=== PATIENT | female | born 1980 | race Caucasian/White ===

== ENCOUNTER 2017-02-23 13:11 | Day surgery (SDC) | payer OTHER ==
[2017-02-23] VITALS (11 sets, daily range): BP systolic 104–121; BP diastolic 60–76; PULSE 56–78; RESP 13–32; Ht 175.3 cm; Wt 62.1 kg
[~2017-02-23] VITALS: Ht 175.3 cm; Wt 62.1 kg
[2017-02-23] MEDS ORDERED: BUPIVACAINE 0.25% (MPF) 30 ML INJ ONE ×2 (13:57→15:30)
[2017-02-23] MEDS ORDERED: MIDAZOLAM 1 MG/ML 2 ML INJ ONE (14:19)
[2017-02-23] MEDS ORDERED: PROPOFOL 20 ML ONE (14:19)
[2017-02-23] MEDS ORDERED: FENTAnyl 50 MCG/ML VIAL ONE ×2 (14:19→16:16)
[2017-02-23] MEDS ORDERED: MEPERIDINE 25 MG INJ IV PRN (14:30)
[2017-02-23] MEDS ORDERED: ONDANSETRON 4 MG INJ IV PRN (14:30)
[2017-02-23] MEDS ORDERED: DIPHENHYDRAMINE 50 MG INJ IV PRN (14:30)
[2017-02-23] MEDS ORDERED: FENTAnyl 50 MCG/ML VIAL IV PRN ×3 (14:30)
[2017-02-23] MEDS ORDERED: morphine (1 MG/ML) 10ML SYRINGE IV PRN ×3 (14:30)
[2017-02-23] MEDS ORDERED: METOCLOPRAMIDE 10 MG INJ IV PRN (14:30)
[2017-02-23] MEDS ORDERED: EPHEDrine SULFATE 50 MG/5 ML SYG IV PRN (14:30)
[2017-02-23] MEDS ORDERED: POLYMYXIN/BACITRACIN 1L IRRIG ONE (15:31)
--- NOTE | 2017-02-23 15:58 | HPN ---
Date/Time of Note Date/Time of Note DATE: 02/23/17 TIME: 15:57 Interval H&P Admission Note Pt. seen H&P reviewed: No system changes PENNIE MURRAY Feb 23, 2017 15:58
[2017-02-23] MEDS ORDERED: KETOROLAC 30 MG INJ ONE (16:07)
[2017-02-23] MEDS ORDERED: DEXAMETHASONE 4 MG/ML 1 ML INJ ONE (16:07)
[2017-02-23] MEDS ORDERED: ONDANSETRON 4 MG INJ ONE (16:07)
[2017-02-23] MEDS ORDERED: METOCLOPRAMIDE 10 MG INJ ONE (16:07)
[2017-02-23] MEDS ORDERED: BUPIVACAINE 0.5% (SDV) 30 ML INJ ONE (16:29)
--- NOTE | 2017-02-23 16:48 | OPPN ---
Date/Time of Note Date/Time of Note DATE: 02/23/17 TIME: 16:47 Operative Report Preoperative Diagnosis right small finger metacarpal shaft fracture Postoperative Diagnosis right small finger metacarpal shaft fracture Operation/Procedure Performed closed reduction percutaneous pinning right small finger metacarpal shaft fracture Surgeon see signature line employee relations assistant none Anesthesia: general Estimated blood loss: 0 - 10 ml's Transfusion Required none Specimen none Grafts/Implants none Complications none PENNIE MURRAY Feb 23, 2017 16:48
--- NOTE | 2017-02-23 19:10 | OPR ---
DATE OF OPERATION: 02/23/2017 SURGEON: Jarrett Covarrubias MD ANESTHESIA: General. PREOPERATIVE DIAGNOSIS: Right small finger metacarpal shaft fracture. POSTOPERATIVE DIAGNOSIS: Right small finger metacarpal shaft fracture. OPERATION PERFORMED: Closed reduction, percutaneous pinning, right small finger metacarpal shaft fracture. OPERATIVE FINDINGS: Right small finger metacarpal shaft fracture with ability to reduce in a closed manner. INDICATION FOR PROCEDURE: A 37-year-old female with injury to the right hand. She was seen in clinic and diagnosed with a displaced right small finger metacarpal shaft fracture. Options were discussed and she elected to proceed with surgical intervention understanding the risks and benefits. OPERATIVE PROCEDURE: The patient was seen in the preoperative area and all further questions were answered. Again, she gave informed consent understanding the risks and benefits. She was taken to the operative suite and placed in the supine position. She was placed under general anesthesia and 2 g Ancef IV given. Right upper extremity was prepped with ChloraPrep stick and draped in the usual sterile fashion. The C-arm was brought in and fluoroscopic images showed ability to reduce the fracture in a closed manner. A 0.045 K-wire was driven retrograde from the collateral recess distally across the fracture site into the metacarpal base. An additional 0.045 K-wire was driven across the contralateral side of the metacarpal and into the base. X- ray imaging showed appropriate hardware placement and near anatomic bony alignment. I was pleased with the appearance of the digits and pins were cut short. Pin caps placed followed by Xeroform, sterile gauze, Webril, and a short arm ulnar gutter splint. The patient was awakened from anesthesia and taken to the postoperative suite in stable condition. Tolerated the procedure well without complications. SPECIMENS: None. ESTIMATED BLOOD LOSS: 5 cc. COUNTS: Sponge, instrument, and needle counts correct. TOURNIQUET TIME: Not applicable. FLUOROSCOPIC IMAGES: 11. CONDITION ON DISCHARGE: Stable. Dictated By: Jarrett Covarrubias MD /yout/cata /Document#: [id number]
--- NOTE | 2017-02-23 23:26 | RADRPT ---
PROCEDURE: Intraoperative imaging of the right hand with fluoroscopy. CLINICAL INDICATION: Right hand pain. Fracture of the right fifth metacarpal. Intraoperative. TECHNIQUE: Images of the right hand were obtained in the operating room with an image intensifier. No radiologist was in attendance. Fluoroscopy time is 32 seconds and 22 images were obtained. COMPARISON: No prior study is available for comparison. FINDINGS: Images demonstrate open reduction and internal fixation of the right fifth metacarpal with to crosse d pins. IMPRESSION: 1. Intraoperative imaging of the right hand. RPTAT: QQ .David Veliz MD, MD Date Time Electronically viewed and signed by .David Veliz MD, on 02/23/2017 23:26 .R/
== END 2017-02-23 18:13 | disposition home or self-care (01) ==
LOC: SUR 13:11 → SDS 13:11 → SUR 18:13
PROVIDERS: ATTEND Orthopaedic Surgery Hand Surgery
DX: S62.326A Displaced fracture of shaft of fifth metacarpal bone, right hand, initial encounter for closed fracture (principal); X58.XXXA Exposure to other specified factors, initial encounter; Y92.89 Other specified places as the place of occurrence of the external cause
CPT/HCPCS: 26746; 73140; 84703; C1713; J1100; J1885; J2250; J2405; J2765; J3010; Z7512; Z7610